=== PATIENT | female | born 1980 | race African-American/Black ===

== ENCOUNTER 2024-03-22 19:03 | Emergency (ER) | payer MEDICAID, SELFPAY ==
[2024-03-22 19:07] VITALS: BP 144/100; PULSE 76; TEMP 36.5; O2SAT 100; BMI 23.9
== END 2024-03-22 20:05 | disposition left against medical advice (07) ==
PROVIDERS: Emergency Provider Emergency Medicine; PCP Nurse Practitioner Family
DX: Z53.21 Procedure and treatment not carried out due to patient leaving prior to being seen by health care provider (principal)